=== PATIENT | male | born 1990 | race Caucasian/White ===

== ENCOUNTER → 2023-10-28 07:32 | Outpatient (REF) | payer OTHER, SELFPAY | LOC: EMG 07:32 | PROVIDERS: ATTENDING PHYSICIAN Internal Medicine | DX: R20.0 Anesthesia of skin (principal) | CPT/HCPCS: 95886; 95911 ==

== ENCOUNTER 2024-06-03 13:27 | Emergency (ER) | payer OTHER, SELFPAY ==
[2024-06-03 13:32] VITALS: BP 137/93
[2024-06-03 13:57] LABS: Urine Albumin Negative (Neg - Trace); Urine Bilirubin Negative (Negative); Urine Character Clear (Clear); Urine Color Yellow; Urine Glucose Negative (Negative); Urine Ketone 1+ (Negative); Urine Leukocyte Negative (Negative); Urine Nitrite Negative (Negative); Urine Occult Blood Negative (Negative); Urine Specific Gravity 1.015 (<1.030); Urine Urobilinogen Negative (Neg - 1+)
--- NOTE | 2024-06-03 16:19 | ED.GENMED ---
History of Present Illness
General
Chief Complaint: Male Genito-Urinary Symptoms
Source: patient
Exam Limitations: none
Time Seen by Provider: 06/03/24 16:05
History of Present Illness
History of Present Illness:
33yoM with a history of varicose veins presenting with his for evaluation of testicular pain. Patient had a transient episode of L testicular pain 1 week ago in which it felt like he got kicked his his groin. This lasted for about 30 minutes
before subsiding. Since then, he has had an intermittent mild throbbing discomfort. His pain started to worsen last night and became even worse around 9am this morning while he was shopping. The pain started to radiate to the L lower back and L
flank today which was new. He felt like he had chills temporarily. Pain is worse with sitting up and better with laying flat. He denies any fevers, vomiting, dysuria, penile discharge.
Past History
Past History
ED Past Medical History: None
ED Past Surgical History: None
Social History
Tobacco: Non-smoker
Alcohol: Occasional
Drug: None
Personal: Single
Living: alone
Phy Exam
General Physical Exam
General Presentation: well appearing and no apparent distress
General age: appears stated age
General Skin: warm and dry
General Habitus: normal
General Mental: alert
ENT Exam
ENT Exam: normocephalic
Pulmonary Exam
Pulmonary Exam: no respiratory distress
Gastrointestinal Exam
Gastrointestinal Exam: non tender, soft, non distended and no cva tenderness
Genitourinary Exam Male
Exam Male: normal external genitalia and other (No scrotal edema or skin changes noted. No tenderness to palpation. No palpable hernia. )
Neurological Exam
Neurological Exam: alert
[place] Coma Scale
Eye Opening: Spontaneous
Verbal Response: Oriented
Motor Response: Obeys Commands
GCS Total Score: 15
Skin Exam
Skin Exam: normal color and warm/dry
Psychiatric Exam
Psychiatric Exam: normal mood/affect
Course
Orders/Labs/Results
Orders:
Orders
06/03/24 13:37
Scrotum US [US Scrotum] Urgent
Comment:
Reason For Exam: pain left testicle
06/03/24 13:47
Urinalysis Reflex To Culture Urgent
Date Specimen was Collected: 06/03/24
Time Specimen was Collected: 13:38
06/03/24 16:18
CT Abd/pel Without Iv Or Oral Urgent
Comment:
Reason For Exam: L flank pain, L groin pain
06/03/24 16:21
Complete Blood Count/With Diff Urgent
Comprehensive Metabolic Panel Urgent
Abnormal Lab Results
06/03/24 06/03/24
13:47 16:21
BUN 22 H mg/dl
(9-20)
Urine Ketones 1+ A
(Negative)
06/03/24 16:21
06/03/24 16:21
Vital Signs
Initial and Last Documented VS:
Initial Vital Signs
Temp Pulse Resp BP Pulse Ox
97.9 F 98 20 137/93 100
06/03/24 13:32 06/03/24 13:32 06/03/24 13:32 06/03/24 13:32 06/03/24 13:32
Last Documented Vital Signs
Temp Pulse Resp BP Pulse Ox
98.0 F 84 16 134/74 100
06/03/24 19:00 06/03/24 19:00 06/03/24 19:00 06/03/24 19:00 06/03/24 19:00
MDM/Problems Addressed
Differential Diagnosis Includes:
33yoM here with L testicular/groin pain. Initially started 1 week ago. Intermittent throbbing pain since then. Now worsening again this morning. Started to radiate to the LLQ/L flank this morning. No urinary symptoms. VSS. He is well appearing in no
distress. External genitalia normal on exam without any swelling, skin changes, or tenderness. Differential diagnosis includes but is not limited to: orchitis, epididymitis, testicular torsion, hernia, musculoskeletal, kidney stone
Initial ED plan: UA and scrotal ultrasound obtained in triage. UA bland without hematuria or signs of infection. Ultrasound shows L varicocele without other acute findings. Doppler flow confirmed bilaterally. Will check CBC, CMP, and CT abdomen. He
declines analgesics.
*Critical Care Note
Total Time (30-74mins, 75-104mins- exclusive of procedures): Not Applicable
Update Note
Update Note:
Labs unremarkable including normal white count and renal function. CT negative for acute findings. Specifically, there is no hydronephrosis or ureterolithiasis. Patient feeling improved on reassessment and states his pain is much better with laying
down. Unclear etiology of pain. ?musculoskeletal. No indication for hospitalization but will have patient f/u with urology in the outpatient setting. Strict ED return precautions discussed. Patient in agreement with plan and was discharged in stable
condition.
ED Attending Note
-
Portions of this chart may have been created with voice recognition software.� Occasional wrong word or��sound alike� substitutions may have occurred due to the inherent limitations of voice recognition software.
Discharge Plan
Departure
Patient Disposition: Home (Routine Discharge)
Date of Disposition: 06/03/24
Time of Disposition: 18:55
Patient with high blood pressure during this ER visit?: No
Discharge Problem:
Pain in left testicle
Instructions: How to Perform a Testicular Self-Exam
Referrals:
Acosta Jaime MD [Active] -
Activity Restrictions/Additional Instructions:
Please call tomorrow to schedule a follow-up with urology. Return to the ER with any new or worsening symptoms.
Interventions
Interventions:
*Risk Screen - Suicide Last Done: 06/03/24 13:32
*General Assessment Last Done: 06/03/24 16:42
*Neglect/Abuse Screening Last Done: 06/03/24 16:42
ED- Fall Risk Assessment Last Done: 06/03/24 19:20
*Nursing Disposition Last Done: 06/03/24 19:20
ED-Male Genitourinary Assessment Last Done: 06/03/24 16:42
Discharge Date and Time
Discharge Date/Time: 06/03/24 19:20
Print Language: SERBIAN
[2024-06-03 17:06] LABS: % Basophils 0.4 % (0-2); % Eosinophils 0.6 % (0-6); % Immature Granulocytes 0.2 % (0-0.5); % Lymphocytes 33.4 % (20.5-51.1); % Monocytes 7.3 % (1.7-9.3); % Neutrophils 58.1 % (42.2-75.2); Absolute Eosinophils 0.1 10^3/uL (0-0.7); Absolute Lymphocytes 2.7 10^3/uL (1.2-3.4); Absolute Monocytes 0.6 10^3/uL (0.1-0.6); Absolute Neutrophils 4.7 10^3/uL (1.4-6.5); Hematocrit 43.7 % (39.0-52.0); Hemoglobin 15.4 g/dL (13.0-18.0); Mean Corp Hgb Conc. 35.2 g/dL (33.0-37.0); Mean Corpuscular Volume 85.2 fL (80.0-94.0); Mean Platelet Volume 8.9 fL (7.4-10.4); Nucleated Red Blood Cells % 0 % (-); Platelet Count 263 10^3/uL (130-400); Red Blood Cell Count 5.13 10^6/uL (4.70-6.10); Red Cell Dist. Width 12.3 % (11.5-14.5); White Blood Cell Count 8.2 10^3/uL (4.8-10.8)
[2024-06-03 17:26] LABS: ALT (SGPT) 41 U/L (0-50); AST (SGOT) 35 U/L (17-59); Albumin 4.4 g/dl (3.5-5.0); Alkaline Phosphatase 56 U/L (38-126); Blood Urea Nitrogen 22 mg/dl (9-20); Calcium 9.4 mg/dl (8.4-10.2); Carbon Dioxide 30 mmol/L (22-30); Chloride 101 mmol/L (98-107); Glucose 79 mg/dl (70-99); Potassium 4.1 mmol/L (3.5-5.1); Sodium 137 mmol/L (135-145); Total Protein 7.8 g/dl (6.3-8.2); eGFR > 60.00
[2024-06-03 19:00] VITALS: BP 134/74
== END 2024-06-03 19:20 | disposition home or self-care (01) ==
LOC: EMR 13:27
PROVIDERS: Emergency Medicine; Physician Assistant; EMERGENCY PHYSICIAN Emergency Medicine; FAMILY PHYSICIAN Internal Medicine
DX: N50.812 Left testicular pain (principal); I83.92 Asymptomatic varicose veins of left lower extremity
CPT/HCPCS: 99284; 74176; 76870; 80053; 81003; 85025; 93976

== ENCOUNTER 2025-04-11 10:13 | Emergency (ER) | payer OTHER, SELFPAY ==
[2025-04-11 10:31] VITALS: BP 114/57; BMI 40.5
[2025-04-11] MEDS: DILAUDID 1 MG IV ×2 (10:43→11:35)
--- NOTE | 2025-04-11 10:58 | ED.GENMED ---
History of Present Illness
<Brittni Donovan PA-C - Last Filed: 04/11/25 15:12>
General
Chief Complaint: Musculo-Skeletal Complaint
Source: patient
Exam Limitations: none
Time Seen by Provider: 04/11/25 10:26
History of Present Illness
History of Present Illness:
34yoM with a history of obesity and prior varicose vein radiofrequency ablation to R leg presenting via EMS for evaluation of a right knee injury. Patient was at work and slipped on ice. He states his knee hyperextended and he felt a crunch in the
knee. About 5 minutes after the injury, he developed paresthesias in the right foot. He was unable to get up after the fall and EMS was activated. He was given IV fentanyl prehospital without any relief. He denies any other injuries. No prior
surgeries to the right knee.
Past History
<Brittni Donovan PA-C - Last Filed: 04/11/25 15:12>
Past History
ED Past Medical History: None
ED Past Surgical History: None
Social History
Tobacco: Non-smoker
Alcohol: Occasional
Drug: None
Personal: Single
Living: alone
Phy Exam
<Brittni Donovan PA-C - Last Filed: 04/11/25 15:12>
Physical Exam
Physical Exam:
Appears uncomfortable 2/2 pain
General Physical Exam
General Presentation: moderate distress
General Skin: warm and dry
General Habitus: normal
General Mental: alert
ENT Exam
ENT Exam: normocephalic
Pulmonary Exam
Pulmonary Exam: no respiratory distress
Neurological Exam
Neurological Exam: alert
[place] Coma Scale
Eye Opening: Spontaneous
Verbal Response: Oriented
Motor Response: Obeys Commands
GCS Total Score: 15
Musculoskeletal Exam
Musculoskeletal Exam: other (Diffuse R knee swelling noted with tenderness. No obvious deformity. Unable to range joint 2/2 pain. Skin intact. Strong PT doppler signal but unable to obtain DP doppler signal in R foot. DP doppler signal present in L
foot.)
Skin Exam
Skin Exam: normal color and warm/dry
Psychiatric Exam
Psychiatric Exam: normal mood/affect
<Edd Wu DO - Last Filed: 04/11/25 11:12>
[place] Coma Scale
GCS Total Score: 15
Course
<Brittni Donovan PA-C - Last Filed: 04/11/25 15:12>
Orders/Labs/Results
Orders:
Orders
04/11/25 10:41
HYDROmorphone [Dilaudid] 1 mg IV NOW STA
CR Knee- Right 4 Or More View* Urgent
Comment:
Reason For Exam: injury
04/11/25 10:56
CT Abd Aorta Angio W/ Run Off Urgent
Comment:
Reason For Exam: R knee injury,numbness,eval popliteal artery
04/11/25 11:21
Complete Blood Count/With Diff Urgent
Comprehensive Metabolic Panel Urgent
04/11/25 11:29
Ice Pack-Treatment DIRECTED
Location: R knee
Acetaminophen [Tylenol] 1,000 mg PO NOW STA
HYDROmorphone [Dilaudid] 1 mg IV NOW STA
04/11/25 13:35
Crutches-Treatment ONCE
Knee Immobilizer Right-Treatme ONCE
Abnormal Lab Results
04/11/25
11:21
RBC 4.65 L 10^6/uL
(4.70-6.10)
Absolute Neuts (auto) 6.7 H 10^3/uL
(1.4-6.5)
Neutrophils % 77.0 H %
(42.2-75.2)
Lymphocytes % 15.8 L %
(20.5-51.1)
Sodium 134 L mmol/L
(135-145)
BUN 27 H mg/dl
(9-20)
Glucose 101 H mg/dl
(70-99)
04/11/25 11:21
04/11/25 11:21
Vital Signs
Initial and Last Documented VS:
Initial Vital Signs
Temp Pulse Resp BP Pulse Ox
98.4 F 69 16 114/57 99
04/11/25 10:31 04/11/25 10:31 04/11/25 10:31 04/11/25 10:31 04/11/25 10:31
Last Documented Vital Signs
Temp Pulse Resp BP Pulse Ox
98.2 F 68 16 109/74 99
04/11/25 14:20 04/11/25 14:20 04/11/25 14:20 04/11/25 14:20 04/11/25 14:20
<Edd Wu, DO - Last Filed: 04/11/25 11:12>
Orders/Labs/Results
Orders:
Orders
04/11/25 10:41
HYDROmorphone [Dilaudid] 1 mg IV NOW STA
CR Knee- Right 4 Or More View* Urgent
Comment:
Reason For Exam: injury
04/11/25 10:56
CT Abd Aorta Angio W/ Run Off Urgent
Comment:
Reason For Exam: R knee injury,numbness,eval popliteal artery
04/11/25 11:21
Complete Blood Count/With Diff Urgent
Comprehensive Metabolic Panel Urgent
04/11/25 11:29
Ice Pack-Treatment DIRECTED
Location: R knee
Acetaminophen [Tylenol] 1,000 mg PO NOW STA
HYDROmorphone [Dilaudid] 1 mg IV NOW STA
04/11/25 13:35
Crutches-Treatment ONCE
Knee Immobilizer Right-Treatme ONCE
Abnormal Lab Results
04/11/25
11:21
RBC 4.65 L 10^6/uL
(4.70-6.10)
Absolute Neuts (auto) 6.7 H 10^3/uL
(1.4-6.5)
Neutrophils % 77.0 H %
(42.2-75.2)
Lymphocytes % 15.8 L %
(20.5-51.1)
Sodium 134 L mmol/L
(135-145)
BUN 27 H mg/dl
(9-20)
Glucose 101 H mg/dl
(70-99)
04/11/25 11:21
04/11/25 11:21
Vital Signs
Initial and Last Documented VS:
Initial Vital Signs
Temp Pulse Resp BP Pulse Ox
98.4 F 69 16 114/57 99
04/11/25 10:31 04/11/25 10:31 04/11/25 10:31 04/11/25 10:31 04/11/25 10:31
Last Documented Vital Signs
Temp Pulse Resp BP Pulse Ox
98.2 F 68 16 109/74 99
04/11/25 14:20 04/11/25 14:20 04/11/25 14:20 04/11/25 14:20 04/11/25 14:20
Lucilt;Brittni Donovan PA-C - Last Filed: 04/11/25 15:12>
MDM/Problems Addressed
Differential Diagnosis Includes:
34yoM presenting for R knee pain after an injury. C/o paresthesias to R foot. Strong PT pulse noted although I am unable to obtain DP pulse with Doppler. Differential diagnosis includes: fracture, ligamentous/meniscus injury, dislocation, consider
vascular injury
Initial ED plan: Check labs, R knee x-rays, and CTA with run off to evaluate popliteal artery. IV Dilaudid for pain.
<Brittni Donovan PA-C - Last Filed: 04/11/25 15:12>
*Pulse Oximetry
SaO2: 99
Oxygen Mode of Delivery: Room air
Patient hypoxic: no
*Critical Care Note
Total Time (30-74mins, 75-104mins- exclusive of procedures): Not Applicable
<Brittni Donovan PA-C - Last Filed: 04/11/25 15:12>
Update Note
Update Note:
No evidence of arterial injury on CTA. X-rays show a small suprapatellar joint effusion but otherwise normal. Discussed case with vascular surgery and no intervention needed unless foot is ischemic which it is not. Discussed need for outpatient
orthopedic f/u. Patient very upset that he is not getting an MRI and discussed that we are unable to complete this in the emergency department. Knee immobilizer and crutches provided as well as a prescription for Keaton. Patient discharged in
stable condition.
ED Attending Note
<Brittni Donovan PA-C - Last Filed: 04/11/25 15:12>
-
Portions of this chart may have been created with voice recognition software.� Occasional wrong word or��sound alike� substitutions may have occurred due to the inherent limitations of voice recognition software.
<Edd Wu DO - Last Filed: 04/11/25 11:12>
ED Attending Note
Patient seen and examined by attending physician: Yes
ED Attending Note:
I have reviewed and agree with history treatment plan by Brittni Donovan PA-C. My exam revealed 34-year-old male in obvious discomfort. Right knee swelling. Palpable PT and DP pulses. Concern for possible knee dislocation relocation and injury
to popliteal artery. CT angiography ordered. Discussed with vascular surgery.
Discharge Plan
Departure
Patient Disposition: Home (Routine Discharge)
Date of Disposition: 04/11/25
Time of Disposition: 14:21
Patient with high blood pressure during this ER visit?: No
Discharge Problem:
Injury of right knee
Instructions: Knee pain - ED (DC)
Prescriptions:
New
hydrocodone-acetaminophen 5-325 mg tablet
1 tab PO Q6H PRN (Reason: Pain) Qty: 12 0RF
Referrals:
Padmini Martell MD [Family Provider, Internal Medicine]
Miguel Angel Huston MD [Active, Orthopedics]
Activity Restrictions/Additional Instructions:
Wear knee immobilizer and use crutches. You may take ibuprofen as needed for pain. Take Keaton only as needed for severe breakthrough pain.
Please call today to schedule a follow-up appointment with orthopedics.
Interventions
Interventions:
*General Assessment Last Done: 04/11/25 10:59
*Neglect/Abuse Screening Last Done: 04/11/25 10:59
*ED COVID-19 Vaccine History Last Done: 04/11/25 10:59
*ED Influenza Vaccine History Last Done: 04/11/25 10:59
[facility] Fall Risk Assessment Tool Last Done: 04/11/25 10:41
*Risk Screen - Suicide (C-SSRS) Last Done: 04/11/25 14:20
*Nursing Disposition Last Done: 04/11/25 14:20
ED-Musculoskeletal Assessment Last Done: 04/11/25 10:40
Discharge Date and Time
Discharge Date/Time: 04/11/25 14:49
Print Language: CITIZEN [place]
[2025-04-11] MEDS: TYLENOL 1000 MG PO (11:36)
[2025-04-11 11:40] LABS: Hematocrit 39.8 % (39.0-52.0); Hemoglobin 14.2 g/dL (13.0-18.0); Mean Corp Hgb Conc. 35.7 g/dL (33.0-37.0); Mean Corpuscular Volume 85.6 fL (80.0-94.0); Nucleated Red Blood Cells % 0 % (-); Platelet Count 226 10^3/uL (130-400); Red Cell Dist. Width 12.2 % (11.5-14.5)
[2025-04-11 12:00] VITALS: BP 112/59
[2025-04-11 12:00] LABS: ALT (SGPT) 44 U/L (0-50); AST (SGOT) 29 U/L (17-59); Albumin 4.5 g/dl (3.5-5.0); Alkaline Phosphatase 47 U/L (38-126); Calcium 8.6 mg/dl (8.4-10.2); Carbon Dioxide 24 mmol/L (22-30); Chloride 101 mmol/L (98-107); Estimated Creatinine Clearance > 125 ml/min; Glucose 101 mg/dl (70-99); Potassium 4.2 mmol/L (3.5-5.1); Sodium 134 mmol/L (135-145); Total Protein 7.4 g/dl (6.3-8.2); eGFR > 60.00
[2025-04-11 12:11] LABS: Blood Urea Nitrogen 27 mg/dl (9-20)
[2025-04-11 14:00] VITALS: BP 109/67
[2025-04-11 14:20] VITALS: BP 109/74
== END 2025-04-11 14:49 | disposition home or self-care (01) ==
LOC: EMR 10:13
PROVIDERS: Physician Assistant; EMERGENCY PHYSICIAN Emergency Medicine; FAMILY PHYSICIAN Internal Medicine
DX: S89.91XA Unspecified injury of right lower leg, initial encounter (principal); R20.2 Paresthesia of skin; W00.0XXA Fall on same level due to ice and snow, initial encounter; R22.41 Localized swelling, mass and lump, right lower limb; Y99.0 Civilian activity done for income or pay
CPT/HCPCS: 99284; 96374; 96376; 73564; 75635; 80053; 85025; Q9967